=== PATIENT | female | born 1955 | race Caucasian/White ===

== ENCOUNTER → 2017-01-20 | Day surgery (SDC) | payer MEDICARE ==
[~2017-01-20] MED LIST: AMBIEN PO; CYMBALTA PO; EFFEXOR37.5 MG PO; ESTRACE1 MG PO; LISINOPRIL10 MG PO; MEDROXYPROGEST2.5 M1 PO; NEURONTIN800 MG PO; OXYCODONE HCL10 MG PO
--- NOTE | ~2017-01-20 | OR ---
Unit #: [id number] #: [id number] Patient: NEELA AGGARWAL [id number] [address] [place], [place] [address] [id number] O MR#: [id number] NAME: NEELA AGGARWAL ROOM: Date of Procedure: 01/20/2017 Admission Date: 01/20/2017 Surgeon: Umesh Varela M.D. : 1955 Attending Physician: Umesh Varela M.D. OPERATIVE REPORT PREOPERATIVE DIAGNOSIS Intercostal neuralgia. POSTOPERATIVE DIAGNOSIS Intercostal neuralgia. PROCEDURE PERFORMED Intercostal nerve block x4 levels with intravenous sedation under fluoroscopic guidance for needle localization. HISTORY This is a 61-year-old female who has chronic problems treated medically. She was last treated with intercostal nerve blocks three years ago and did extremely well. Got quite significant again over the last few months. Based on history, pathology, symptomatology, and prior response to treatment, plan is to repeat intercostal nerve blocks. DESCRIPTION OF PROCEDURE The patient was placed in a left lateral decubitus position. Fluoroscopy was used to identify the right-sided 8, 9, 10 and 11 ribs in the midaxillary line. These positions were marked. The area was then sterilely prepped and allowed to air dry and sterilely draped. The skin overlying those marginal ribs was localized with 1% lidocaine. At each level, a 25-gauge Quincke point needle was advanced down to the midpoint of the rib. It was walked off the inferior border. Position was checked with fluoroscopy. A dose of 4 mL of a mixture of 80 mg of Depo-Medrol and 7 mL of 0.25% bupivacaine were deposited. The needle was repositioned once during the injection. Needle was aspirated each time before the injection and there was no return of air at any level or heme The exact same procedure was then repeated at the 10th, 9th and 8th ribs. Each with fluoroscopic confirmation and each with same dosing of the same mixture of medications. The patient was discharged to the recovery room in stable condition. He had near immediate improvement in her symptom complex. Dictated by... Corey Polo/savi TD: 01/20/2017 08:31 Unit #: [id number] #: [id number] Patient: NEELA AGGARWAL JOB #: [id number] OPERATIVE REPORT Page 1 of 1 X Umesh Varela MD X PROCEDURE OPERATIVE NOTE
== END | disposition home or self-care (01) ==
LOC: CCSC 06:57
DX: G58.0 Intercostal neuropathy (principal)
CPT/HCPCS: J0461; J1040; J2250; J2310

== ENCOUNTER → 2017-05-05 | Day surgery (SDC) | payer MEDICARE ==
--- NOTE | ~2017-05-05 | OR ---
Unit #: [id number] #: [id number] Patient: NEELA AGGARWAL [id number] [address] [place], [place] [address] [id number] O MR#: [id number] NAME: NEELA AGGARWAL ROOM: Date of Procedure: 05/05/2017 Admission Date: 05/05/2017 Surgeon: Umesh Varela M.D. : 1955 Attending Physician: Umesh Varela M.D. Primary Care Physician: Lacho Rico M.D. OPERATIVE REPORT PREOPERATIVE DIAGNOSES Back pain, sacroiliac joint dysfunction. POSTOPERATIVE DIAGNOSIS Back pain, sacroiliac joint dysfunction. PROCEDURE PERFORMED Right sacroiliac joint injection with intravenous sedation and fluoroscopic guidance for needle localization. INDICATIONS FOR PROCEDURE The patient is a 61-year-old female with right-sided low back and buttock area pain. It is felt to be due to sacroiliac joint dysfunction. Orthopedic surgeon Dr. Mustafa. She requested a diagnostic and hopefully therapeutic right sacroiliac joint injection. Risks and benefits of all have been reviewed. DESCRIPTION OF PROCEDURE The patient was placed in a prone position. Standard monitors were applied. Sterile prep and drape of the lumbosacral area was performed. Fluoroscopy was used to identify the midpoint of the right sacroiliac joint. The skin just medial to this was localized with 1% lidocaine. A 22-gauge Quincke point spinal needle was then advanced with fluoroscopic guidance to bring the needle tip to within the edge of the right sacroiliac joint. After confirming proper positioning with fluoroscopy and radiographic contrast, a dose of 80 mg of Depo-Medrol and 4 mL of 0.25% bupivacaine were deposited. The patient tolerated the procedure otherwise well and was discharged to the recovery room in stable condition. Dictated by... Corey PoloP/savi TD: 05/05/2017 12:59 JOB #: [id number] CC: Dillon Mustafa M.D. [facility] Unit #: [id number] #: [id number] Patient: NEELA AGGARWAL OPERATIVE REPORT Page 1 of 1 X Umesh Varela MD X PROCEDURE OPERATIVE NOTE
== END | disposition home or self-care (01) ==
LOC: CCSC 10:57
DX: M53.3 Sacrococcygeal disorders, not elsewhere classified (principal); I10 Essential (primary) hypertension; K21.9 Gastro-esophageal reflux disease without esophagitis; Z79.891 Long term (current) use of opiate analgesic; Z79.899 Other long term (current) drug therapy
CPT/HCPCS: J1040; J2250